=== PATIENT | female | born 1980 | race Caucasian/White ===

== ENCOUNTER 2016-11-24 19:13 | Emergency (ER) | payer MEDICAID ==
[2016-11-24 19:35] VITALS: BP 134/80; PULSE 67; TEMP 98.2; BMI 29.3
[2016-11-24] MEDS ORDERED: LIDOCAINE 2% VISCOUS ORAL 15 ML PO ONE (20:00)
--- NOTE | 2016-11-24 20:14 | EDPRACDOC ---
ED Rectal & Constipation Pain - General Information Chief Complaint: Bleeding (Rectal &/or other) Information Source: Patient Mode of Arrival:: Car Home Medications: Home Medications Hydrocortisone [Anusol Hc] 25 mg HI TID #20 supp 11/24/16 LIDOCAINE 2% Viscous [Xylocaine 2% Viscous] 15 ml TOP DIR PRN #180 udc Magnesium Hydroxide [Milk of Magnesia] 5 ml PO DIR #180 oral.susp 11/24/16 Oxycodone Immediate Release [Oxycodone Immediate Release (OxyIR)] 5 mg PO Q6H PRN #20 tab 11/24/16 Allergies/Adverse Reactions: Allergies Allergy/AdvReac Type Severity Reaction Status Date / Time No Known Allergies Allergy Verified 11/24/16 19:59 - History of Present Illness Onset: [employer] Symptoms started: Reports: Spontaneous Location: Reports: Rectum Symptoms: Reports: Pain, Bleeding Due To: Reports: Constipation History Of: Reports: Constipation Severity:: Reports: Mild BM: Reports: Sharp, Stabbing Stool: Reports: Hard Worsens: Reports: Sitting Improves: Reports: Standing Associated Sign & Symptoms: Reports: Rectal Bleeding Abdominal Pain: Quality: Denies: Aching, Burning, Cramping, Sharp, Stabbing Location: Denies: DIffuse, Epigastic, RUQ, LUQ, RLQ, LLQ, Suprapubic ED Past Medical History - History Reviewed Yes Nurses notes reviewed and agree except as marked - Patient Medical History Psychological History: Denies: Depression Additional Past Medical History: MULTIPLE PRIOR LIP LACERATIONS Surgical History: Denies: Hysterectomy - Social Medical History Smoking Status: Heavy tobacco smoker (5 or more cigarettes/day or daily pipe/ cigar) EDM Review of Systems - Review of Systems ROS Negative Except as Marked: Yes All systems reviewed and were negative except as marked - Physical Exam Constitutional: Alert Oriented to: Time, Person, Place Last recorded Vital Signs: Last Vital Signs Temp 98.2 F 11/24/16 19:34 Pulse 67 11/24/16 19:34 Resp 18 11/24/16 19:34 BP 134/80 11/24/16 19:34 Pulse Ox 98 11/24/16 19:34 Oxygen Pulse Oxygen Saturation 98 O2 Device Oxygen Flow Rate Fraction of Inspired Oxygen ( FIO2) - HEENT Head: Normal ( normocephalic) Eye Exam: Normal (PERRL, EOMI, Sclera white) Oropharynx: Normal (Pharynx:Moist without exudate,Gums-no swelling) Tympanic Membrane: Normal Nose: No Symptoms Reported (septum midline) Neck: Normal (FROM, trachea at midline) - Respiratory/Cardiovascular Respiratory: Normal - CTA (BBS clear to auscultation without adventitious sounds ) Cardiovascular: Normal (RRR without murmur, gallop or rub) - GI Auscultation: Normal (NABS) Palpation: Normal (Soft,No rebound or guarding, non distended) Tenderness: Non tender Lugo's Sign: Negative Rectal Exam: Blood, Hemorrhoids (APPEARS TO BE THROMBOSED HEMORRHOID THAT RUPTURED), Tender - Musculoskeletal Back: Normal (Non-Tender) Extremities: Normal (Normal tone, Pulses 2+ No cyanosis or edema, FROM) - Integumentary Skin: Normal, Warm, Dry Lymphatics: Normal (no adenopathy) - Neurologic Memory Impaired: Normal Motor Function: Normal (Normal tone, Pulses 2+ No cyanosis or edema, FROM) Cranial Nerve: Normal (CN II-X11 intact sensation, strength 5/5) Cerebellar: Normal Mood Description: Normal Perception: Normal - Differential Diagnosis Other Decision Time to Discharge: 20:14 - Departure Disposition: Home Final Diagnosis: Hemorrhoids Instructions: Hemorrhoids (ED) Education/Counseling Given To: Patient Education/Counseling Given Regarding: Diagnosis, Treatment, Prognosis, Follow Up Referrals: Blaire Hinojosa PA [Primary Care Provider] - One Week Prescriptions: New Hydrocortisone [Anusol Hc] 25 mg HI TID #20 supp LIDOCAINE 2% Viscous [Xylocaine 2% Viscous] 15 ml TOP DIR PRN #180 udc PRN Reason: Pain Magnesium Hydroxide [Milk of Magnesia] 5 ml PO DIR #180 oral.susp Oxycodone Immediate Release [Oxycodone Immediate Release (OxyIR)] 5 mg PO Q6H PRN #20 tab PRN Reason: Pain Additional Instructions: FOLLOW UP WITH PCP NEXT WEEK. RETURN TO THE ED FOR WORSENING SYMPTOMS OR CONCERNS.
== END 2016-11-24 20:23 | disposition home or self-care (01) ==
LOC: EDMC 19:13
DX: K64.9 Unspecified hemorrhoids (principal)
CPT/HCPCS: 99282; J2001